=== PATIENT | male | born 1945 | race American Indian/Alaskan Native ===

== ENCOUNTER 2019-06-19 07:15 | Day surgery (SDC) | payer MEDICARE ==
[2019-06-19] MEDS ORDERED: SODIUM CHLORIDE 0.9% 1000 ML 1,000 ML ONE (08:09)
[2019-06-19] MEDS ORDERED: SODIUM CHLORIDE 0.9% 1000 ML 1,000 ML IV SCH (09:00)
[2019-06-19] MEDS ORDERED: LIDOCAINE MPF (2%) 20 MG/1 ML VIAL 5 ML ONE (09:00)
[2019-06-19] MEDS ORDERED: PROPOFOL 200 MG/20 ML VIAL IV ONE ×3 (09:03)
--- NOTE | 2019-06-19 09:48 | Procedure Note ---
Date of procedure: 06/19/19 Pre-op diagnosis: Colon Polyp Screening/ H/O Colon Polyps Post-op diagnosis: other (Colon Polyps (Cecal Polyp removed by snare polypectomy and Rectal Polyp removed by cold biopsy)/ Moderate,Left Colon Diverticular Disease/Normal Ileal Mucosa/Minor,Internal Hemorrhoid) Procedure: Colonoscopy with Snare Polypectomy and Cold Biopsy Anesthesia: [facility] [place] Surgeon: IAN TRIPP Estimated blood loss: minimal Pathology: list Specimen disposition: to lab Condition: stable Disposition: same day (Encourage fiber intake. Avoid aspirin and NSAID for 4 days; otherwise resume home medicaion. Follow up in 1 to 2 weeks ([phone]).)
--- NOTE | 2019-06-19 10:12 | Operative Report ---
PROCEDURE: Colonoscopy with snare polypectomy and cold biopsy. INDICATIONS: The patient is a 73-year-old -[place] gentleman with an underlying history of diabetes, hypertension, prior history of multiple colon polyps. Last colonoscopy was a few years ago. Repeat colonoscopy was done to make sure there was not any recurrence of any polyps. DESCRIPTION OF PROCEDURE: Procedure was done after getting informed consent with MAC anesthesia. Initial rectal exam was unremarkable. Instrument was passed through the rectum onto the cecum, which was identified with ileocecal valve and appendiceal orifice. Visualization was fair to good. The terminal ileum was intubated showed normal mucosa. The cecum was also viewed on the retroverted view and no additional pathology was noted except for a cecal polyp, which was about 10 mm in diameter. This was removed by snare polypectomy and retrieved. The remaining part of the cecum, ascending colon and most of the transverse colon showed normal mucosa of the distal transverse colon as well as the left colon showed extensive moderate deep diverticular disease and the rectum showed 8 mm polyp that was sessile and removed by cold biopsy and showed minor internal hemorrhoid on the retroverted view. There was minimal bleeding from the biopsy sites and no complications associated with the procedure. ASSESSMENT: Colon polyp screening, history of colon polyps, multiple polyps noted, 1 in the cecum, 1 in the rectum. The cecal polyp was removed by snare polypectomy and the rectum by cold biopsy. There was minimal bleeding from the biopsy sites. There was also extensive left colon diverticular disease and minor internal hemorrhoid. PLAN: Plan is to advise the patient to avoid aspirin and aspirin-related products for the next few days. Otherwise, resume home medication and encouraged the patient to take fiber supplements and follow up in the office in 1-2 weeks' time. Procedure was done in the GI lab with assistance of the GI lab team, which included Megan CUEVAS and Yuliana saavedra and with assistance of anesthesia. JOB# [id number] TALISHA/TELMA
--- NOTE | 2019-06-19 10:30 | Anesthesia Consultation ---
Anesthesia Consult and Med Hx Date of service: 06/19/19 - Airway Anesthetic Teeth Evaluation: Good ROM Head & Neck: Adequate Mental/Hyoid Distance: Adequate Mallampati Class: Class II Intubation Access Assessment: Probably Good - Pulmonary Exam CTA: Yes - Cardiac Exam Cardiac Exam: RRR - Pre-Operative Health Status ASA Pre-Surgery Classification: ASA3 Proposed Anesthetic Plan: MAC - Pulmonary Hx Smoking: No Hx Asthma: No Hx Respiratory Symptoms: No SOB: No COPD: No Home Oxygen Therapy: No Hx Pneumonia: No Hx Sleep Apnea: Yes - Cardiovascular System Hx Hypertension: Yes Hx Coronary Artery Disease: No Hx Heart Attack/AMI: No Hx Angina: No Hx Percutaneous Transluminal Coronary Angioplasty (PTCA): No Hx Cardia Arrhythmia: No Hx Pacemaker: No Hx Internal Defibrillator: No Hx Valvular Heart Disease: No Hx Heart Murmur: No Hx Peripheral Vascular Disease: No - Central Nervous System Hx Neuromuscular Disorder: No Hx Seizures: No CVA: No Hx Back Pain: No Hx Psychiatric Problems: No - Gastrointestinal Hx Ulcer: No Hx Gastroesophageal Reflux Disease: No - Endocrine Hx Renal Disease: No Hx End Stage Renal Disease: No Hx Cirrhosis: No Hx Liver Disease: No Hx Insulin Dependent Diabetes: No Hx Non-Insulin Dependent Diabetes: No (diet controlled ) Hx Thyroid Disease: No Hx Hypothyroidism: No Hx Hyperthyroidism: No - Hematic Hx Anemia: No - Other Systems Hx Alcohol Use: No Hx Substance Use: No Hx Cancer: No Hx Obesity: Yes
--- NOTE | 2019-06-19 10:31 | Anesthesia Day of Surgery ---
Anesthesia Day of Surgery - Day of Surgery Patient Examined: Yes Patient H&P Reviewed: Yes Patient is NPO: Yes Beta Blockers: No (pt on Bp meds but does not know the names)
[2019-06-19 10:34] VITALS: BP 114/66
--- NOTE | 2019-06-19 14:56 | Post Anesthesia Evaluation ---
- Post Anesthesia Evaluation Patient Participated: Yes Airway Patent: Yes Stable Respiratory Function: Yes Nausea/Vomiting: No Temp > 96.8F: Yes Pain Manageable: Yes Adequeate Hydration: Yes Anesthesia Complications: No Block Receding Appropriately: Not Applicable Patient on Ventilator: No
== END 2019-06-19 10:55 | disposition home or self-care (01) ==
LOC: GIO 07:15
DX: Z12.11 Encounter for screening for malignant neoplasm of colon (principal); D12.0 Benign neoplasm of cecum; K62.1 Rectal polyp; E11.9 Type 2 diabetes mellitus without complications; I10 Essential (primary) hypertension; K57.30 Diverticulosis of large intestine without perforation or abscess without bleeding; E78.00 Pure hypercholesterolemia, unspecified; G47.30 Sleep apnea, unspecified; E66.9 Obesity, unspecified; Z68.45 Body mass index [BMI] 70 or greater, adult; Z98.890 Other specified postprocedural states; Z86.010 Personal history of colon polyps
CPT/HCPCS: 45380; 45385; 82962; 88305; J2704; J7030

== ENCOUNTER 2020-08-05 06:57 | Day surgery (SDC) | payer MEDICARE ==
[2020-08-05] MEDS ORDERED: SODIUM CHLORIDE 0.9% 1000 ML 1,000 ML IV SCH (07:00)
--- NOTE | 2020-08-05 07:33 | Anesthesia Consultation ---
Anesthesia Consult and Med Hx Date of service: 08/05/20 - Airway Anesthetic Teeth Evaluation: Good, Caps, Crowns ROM Head & Neck: Adequate Mental/Hyoid Distance: Adequate Mallampati Class: Class III Intubation Access Assessment: Possibly Difficult - Pre-Operative Health Status ASA Pre-Surgery Classification: ASA3 Proposed Anesthetic Plan: MAC - Pulmonary Hx Smoking: No Hx Asthma: No Hx Respiratory Symptoms: No SOB: No COPD: No Hx Pneumonia: No Hx Sleep Apnea: Yes (Uses CPAP every night) - Cardiovascular System Hx Hypertension: Yes Hx Coronary Artery Disease: No Hx Heart Attack/AMI: No Hx Angina: No Hx Percutaneous Transluminal Coronary Angioplasty (PTCA): No Hx Cardia Arrhythmia: No Hx Pacemaker: No Hx Internal Defibrillator: No Hx Valvular Heart Disease: No Hx Heart Murmur: No Hx Peripheral Vascular Disease: No - Central Nervous System Hx Neuromuscular Disorder: No Hx Seizures: No CVA: No Hx Back Pain: No Hx Psychiatric Problems: No - Gastrointestinal Hx Ulcer: No Hx Gastroesophageal Reflux Disease: No - Endocrine Hx Renal Disease: No Hx End Stage Renal Disease: No Hx Cirrhosis: No Hx Liver Disease: No Hx Insulin Dependent Diabetes: No Hx Non-Insulin Dependent Diabetes: Yes (diet controlled ) Hx Thyroid Disease: No Hx Hypothyroidism: No Hx Hyperthyroidism: No - Hematic Hx Anemia: No - Other Systems Hx Alcohol Use: No Hx Substance Use: No Hx Cancer: No Hx Obesity: Yes (BMI 42.3)
--- NOTE | 2020-08-05 07:33 | Anesthesia Day of Surgery ---
Anesthesia Day of Surgery - Day of Surgery Patient Examined: Yes Patient H&P Reviewed: Yes Patient is NPO: Yes
[2020-08-05] MEDS ORDERED: propofoL 200 MG/20 ML VIAL IV ONE ×2 (08:40→08:49)
[2020-08-05] MEDS ORDERED: SODIUM CHLORIDE 0.9% 1000 ML IV SOLN IV ONE (08:48)
--- NOTE | 2020-08-05 09:12 | Procedure Note ---
Date of procedure: 08/05/20 Pre-op diagnosis: Colon Polyp Screening/ H/o Colon Polyps (Tubular Adenoma) Post-op diagnosis: other (No Colon Polyps now/ Extensive,Deep Diverticular Disease) Procedure: Colonoscopy Anesthesia: MAC Surgeon: IAN TRIPP Estimated blood loss: none Pathology: none Condition: stable Disposition: same day (Encourage fiber intake. Resume home medication and f/u in 1 to 2 weeks ([phone]).)
--- NOTE | 2020-08-05 09:17 | Operative Report ---
PROCEDURE: Colonoscopy. INDICATIONS: A 74-year-old gentleman with an underlying history of diabetes mellitus, hypertension, prior history of colon, polyp of the tubular adenoma type. Repeat colonoscopy was done to make sure there was not any recurrence of any polyps. DESCRIPTION OF PROCEDURE: The procedure was done after getting informed consent with MAC anesthesia. Initial rectal exam was unremarkable. Instrument was passed through the rectum onto the cecum, which was identified with ileocecal valve and appendiceal orifice. Cecum was also viewed on the retroverted manner. No additional pathology was noted. The patient was noted to have extensive diverticular disease in the proximal colon, transverse colon and also in the left colon and most pronounced in the proximal colon and the rectum appeared normal on the retroverted view. There were no internal hemorrhoids noted. There was no bleeding. No complications associated with the procedure. ASSESSMENT: 1. Colon polyp screening, prior history of colon polyps, none now. 2. Extensive diverticular disease, no internal hemorrhoids noted. PLAN: To encourage the patient to take fiber supplements. Resume home medication and follow up in the office in 1-2 weeks' time. Procedure was done in the GI lab with assistance of the GI lab team including the technical project coordinator and with assistance of anesthesia. JOB# [id number] TALISHA/TELMA
[2020-08-05 09:21] VITALS: BP 101/68
== END 2020-08-05 06:58 | disposition home or self-care (01) ==
LOC: GIO 06:57
DX: K59.00 Constipation, unspecified (principal); K57.30 Diverticulosis of large intestine without perforation or abscess without bleeding; E11.9 Type 2 diabetes mellitus without complications; I10 Essential (primary) hypertension; E78.00 Pure hypercholesterolemia, unspecified; G47.30 Sleep apnea, unspecified; E66.9 Obesity, unspecified; M10.9 Gout, unspecified; Z98.890 Other specified postprocedural states; Z80.0 Family history of malignant neoplasm of digestive organs; Z88.8 Allergy status to other drugs, medicaments and biological substances; Z68.41 Body mass index [BMI] 40.0-44.9, adult
CPT/HCPCS: 45378; 82962; J2704; J7030